=== PATIENT | female | born 1955 | race Hispanic/Latino ===

== ENCOUNTER 2017-10-25 05:27 | Emergency (ER) | payer MEDICARE ==
[~2017-10-25] VITALS: Ht 157.5 cm; Wt 71.7 kg
[~2017-10-25 05:27] MED LIST: Z.0.FOLIC ACID1 MG MT; Z.0.HUMIRA40 MG/0.1 SQ; Z.0.MELOXICAM15 MG MT; Z.1.METHOTREXATE2.5 MT
[2017-10-25 05:54] LABS: BASOPHILS # (AUTO) 0.1 (0.0-0.1); BASOPHILS % 0.7 % (0.0-1.0); EOSINOPHILS # (AUTO) 0.2 (0.0-0.4); EOSINOPHILS % 1.9 % (0.0-6.0); HEMATOCRIT 40.3 % (34.2-44.1); HEMOGLOBIN 13.7 g/dL (12.0-16.0); LYMPHOCYTES # (AUTO) 2.9 (1.0-3.2); LYMPHOCYTES % 29.8 % (18.0-39.1); MEAN CORPUSCULAR HEMOGLOBIN 31.4 pg (28-32); MEAN CORPUSCULAR VOLUME 92.2 fL (81-99); MONOCYTES # (AUTO) 0.9 (0.2-0.8); NEUTROPHILS # (AUTO) 5.7 (2.1-6.9); NEUTROPHILS % 58.1 % (38.7-80.0); PLATELET COUNT 334 x10e3/uL (140-360); RED BLOOD COUNT 4.37 x10e6/uL (3.6-5.1); RED CELL DISTRIBUTION WIDTH 14.3 % (11.7-14.4)
[2017-10-25 05:55] LABS: CLARITY,URINE CLEAR (CLEAR); COLOR,URINE YELLOW (YELLOW)
[2017-10-25 06:07] LABS: LEUKOCYTE ESTERASE ,URINE NEGATIVE (NEGATIVE); NITRITE,URINE NEGATIVE (NEGATIVE); PROTEIN,URINE DIPSTICK NEGATIVE (NEGATIVE)
[2017-10-25 06:08] LABS: BACTERIA,URINE RARE /HPF; BILIRUBIN,URINE NEGATIVE (NEGATIVE); EPITHELIAL CELLS,URINE RARE /LPF; KETONES,URINE NEGATIVE (NEGATIVE); RBC,URINE 0-5 /HPF (0-5); URINE UROBILINOGEN 0.2 mg/dL (0.2 - 1); WBC,URINE (MAN) 0-5 /HPF (0-5)
[2017-10-25 06:29] LABS: ALANINE AMINOTRANSFERASE 26 IU/L (0-55); ALBUMIN 4.1 g/dL (3.5-5.0); ALBUMIN/GLOBULIN RATIO 1.2 (0.8-2.0); ALKALINE PHOSPHATASE 116 IU/L (40-150); AMYLASE 75 U/L (25-125); ANION GAP 12.5 mmol/L (8-16); BLOOD UREA NITROGEN 10 mg/dL (7-26); BUN/CREATININE RATIO 14 (6-25); CALCIUM 9.7 mg/dL (8.4-10.2); CARBON DIOXIDE 27 mmol/L (22-29); CHLORIDE 103 mmol/L (98-107); CREATININE, SERUM 0.72 mg/dL (0.57-1.11); EST GLOMERULAR FILTRATION RATE > 60 ML/MIN (60-); GLUCOSE 89 mg/dL (74-118); LIPASE 8 U/L (8-78); POTASSIUM 3.5 mmol/L (3.5-5.1); SODIUM 139 mmol/L (136-145)
--- NOTE | 2017-10-25 06:33 | Diagnostic Imaging Report ---
EXAM: CT ABDOMEN/PELVIS WO DATE: 10/25/2017 5:48 AM INDICATION: Right flank pain COMPARISON: None TECHNIQUE: The abdomen and pelvis were scanned using a multidetector helical scanner. Coronal and sagittal reformations were obtained. Routine protocol performed. IV Contrast: 0 ml Isovue 370 FINDINGS: Lack of IV contrast decreases sensitivity in evaluating abdominal and pelvic organs. LOWER THORAX: Minimal scattered atelectasis/scarring. LIVER/BILIARY: No masses. No ductal dilatation. GALLBLADDER: Unremarkable SPLEEN: Unremarkable PANCREAS: Unremarkable ADRENALS: No nodules KIDNEYS: No stones. No hydronephrosis. GI TRACT: No wall thickening or evidence of obstruction. Normal appendix. VESSELS: Mild atherosclerotic calcification. PERITONEUM/RETROPERITONEUM: No free air or fluid LYMPH NODES: No lymphadenopathy REPRODUCTIVE ORGANS/BLADDER: Unremarkable SOFT TISSUES: Unremarkable BONES: Lower lumbar facet arthrosis. Grade 1 anterolisthesis of L4 over L5. IMPRESSION: No evidence of obstructive uropathy or other acute abnormality on noncontrast evaluation. Signed by: Dr Mirtha Mireles MD on 10/25/2017 6:29 AM
[2017-10-25] MEDS ORDERED: KETOROLAC TROMETHAMINE 30 MG/ML VIAL IV STA (06:49)
== END 2017-10-25 07:31 | disposition home or self-care (01) ==
LOC: ER 05:27
DX: R10.9 Unspecified abdominal pain (principal); R11.0 Nausea; S39.011A Strain of muscle, fascia and tendon of abdomen, initial encounter; M06.9 Rheumatoid arthritis, unspecified
CPT/HCPCS: 36415; 74176; 80053; 81001; 82150; 83690; 85025; 96374; 99284; J1885

== ENCOUNTER 2019-12-13 12:21 | Emergency (ER) | payer MEDICARE ==
[~2019-12-13] VITALS: Ht 157.5 cm; Wt 71.7 kg
--- OUTSIDE RECORDS SUMMARY | 2019-12-13 12:23 | XMS REPORT ---
Author Author [facility] t Organization [facility] Address [address] [facility]. [address] [place] [address] Phone Unavailable Care Team Providers Care Healthcare Educator Name Role Phone NATHALIE BHATT MD PCP Bronson KEENAN Attphys Unavailable Payers Payer Name Policy Type Policy Number Effective Date Expiration Date S ource Medicare A & B [id number] Joint venture between [facility] Problems This patient has no known problems. Allergies, Adverse Reactions, Alerts Allergy Name Allergy Type Status Severity Reaction(s) Onset Date Inacti ve Date Treating Clinician Comments Source Iodine Allergy to Substance Active Unknown 2017-10-25 00:00:00 [facility] Medications Ordered Medication Name Filled Medication Name Start Date Stop Da te Current Medication? Ordering Clinician Indication Dosage Frequency Signature (SIG) Comments Components Source Adalimumab (Humira) 40 Mg/0.8 Ml Pen.ij.kit Adalimumab (Humira) 40 Mg/0.8 Ml Pen.ij.kit Yes 1 Every 2 Weeks C [facility] Folic Acid 1 Mg Tablet Folic Acid 1 Mg Tablet Yes 5 Once/Week [facility] Meloxicam 15 Mg Tablet Meloxicam 15 Mg Tablet Yes 1 Daily [facility] Methotrexate Sodium (Methotrexate) 2.5 Mg Tablet Metho trexate Sodium (Methotrexate) 2.5 Mg Tablet Yes 5 Once/Week [facility] Procedures Procedure Date / Time Performed Performing Clinician [facility] robert CT of abdomen and pelvis without contrast 2017-10-25 00:00:0 0 RITO KEENAN [facility] Encounters Start Date/Time End Date/Time [facility]counter Type [facility] En[facility] ID Source 2017-10-25 05:27:00 2017-10-25 07:31:00 Departed Emergency Room ER RITO KEENAN [facility] [id number] [facility] Results Test Description Test Time Test Comments Results Result Comments Source Sodium Level 2017-10-25 06:40:00 Test Item Sodium Level (test code = 2951-2) 139 136-145 [facility] CampusPotassium [id number] 06:40:00* Test Item Value Reference Range Interpretation Comments Potassium Level (test code = 2823-3) 3.5 3.5-5.1 [facility] CampusChloride [id number] 06:40:00* Test Item Value Reference Range Interpretation Comments Chloride Level (test code = 2075-0) 103 98-107 [facility] CampusCarbon Dioxide Hqrgw5614-11-80 06:40:00* Test Item Value Reference Range Interpretation Comments Carbon Dioxide Level (test code = 2028-9) 27 22-29 [facility] CampusAnion [id number] 06:40:00* Test Item Value Reference Range Interpretation Comments Anion Gap (test code = 29597-6) 12.5 8-16 [facility] CampusBlood Urea [id number] 06:40:00* Test Item Value Reference Range Interpretation Comments Blood Urea Nitrogen (test code = 3094-0) 10 7-26 [facility] CampusCreatinine2018-03-31 06:40:00* Test Item Value Reference Range Interpretation Comments Creatinine (test code = 2160-0) 0.72 0.57-1.11 [facility] CampusBUN/Creatinine [id number] 06:40:00* Test Item Value Reference Range Interpretation Comments BUN/Creatinine Ratio (test code = 3097-3) 14 6-25 [facility] CampusEstimat Glomerular Filtration Rate 2017-10-25 06:40:00* Test Item Value Reference Range Interpretation Comments Estimat Glomerular Filtration Rate (test code = 32170-7) 60- >60 Ranges were taken from the National Kidney Disease Education Program and the [facility] literature.Reference ranges:60 or greater: Vrizby54-96 ( for 3 consecutive months): Chronic kidney disease 15 or less: Kidney failureNorth [facility] Hospital [facility] Falls CampusGlucose [id number] 06:40:00* Test Item Value Reference Range Interpretation Comments Glucose Level (test code = WFE5038) 89 74-118 [facility] CampusCalcium [id number] 06:40:00* Test Item Value Reference Range Interpretation Comments Calcium Level (test code = 38218-9) 9.7 8.4-10.2 [facility] CampusTotal Xzsdomgzm7531-05-21 06:40:00* Test Item Value Reference Range Interpretation Comments Total Bilirubin (test code = 1975-2) 0.6 0.2-1.2 [facility] CampusAspartate Amino Transf (AST/SGOT) 2017-10-25 06:40:00* Test Item Value Reference Range Interpretation Comments Aspartate Amino Transf (AST/SGOT) (test code = Aspartate Amino Transf (AST/SGOT)) 19 5-34 [facility] CampusAlanine Aminotransferase (ALT/SGPT) 2017-10-25 06:40:00* Test Item Value Reference Range Interpretation Comments Alanine Aminotransferase (ALT/SGPT) (test code = 1742-6) 26 0-55 [facility] CampusTotal Bcdttku0175-16-54 06:40:00* Test Item Value Reference Range Interpretation Comments Total Protein (test code = 2885-2) 7.6 6.5-8.1 [facility] CampusAlbumin2018-03-31 06:40:00* Test Item Value Reference Range Interpretation Comments Albumin (test code = 1751-7) 4.1 3.5-5.0 [facility] CampusGlobulin2018-03-31 06:40:00* Test Item Value Reference Range Interpretation Comments Globulin (test code = 99308-5) 3.5 2.3-3.5 [facility] CampusAlbumin/Globulin [id number] 06:40:00 * Test Item Value Reference Range Interpretation Comments Albumin/Globulin Ratio (test code = 1759-0) 1.2 0.8-2.0 [facility] CampusAlkaline Ncliryckwax4623-77-30 06:40:00* Test Item Value Reference Range Interpretation Comments Alkaline Phosphatase (test code = 6768-6) 116 40-150 [facility] CampusAmylase Fjejd7586-81-95 06:40:00* Test Item Value Reference Range Interpretation Comments Amylase Level (test code = 1798-8) 75 25-125 [facility] CampusLipase2018-03-31 06:40:00* Test Item Value Reference Range Interpretation Comments Lipase (test code = 3040-3) 8 8-78 [facility] CampusUrine Ueexb7441-57-62 06:08:00* Test Item Value Reference Range Interpretation Comments Urine Color (test code = 5778-6) YELLOW YELLOW [facility] CampusUrine Bwnuilk5248-89-46 06:08:00* Test Item Value Reference Range Interpretation Comments Urine Clarity (test code = 38911-7) CLEAR CLEAR [facility] CampusUrine Specific Nfxjhfz4432-84-41 06:08:00 * Test Item Value Reference Range Interpretation Comments Urine Specific Mitchell (test code = 5811-5) 1.010 1.010-1.02 5 [facility] CampusUrine [id number] 06:08:00* Test Item Value Reference Range Interpretation Comments Urine pH (test code = 59059-5) 7 5-7 [facility] CampusUrine Leukocyte Cikgnpfk7704-28-09 06:08:00* Test Item Value Reference Range Interpretation Comments Urine Leukocyte Esterase (test code = 5799-2) NEGATIVE NEGATIVE [facility] CampusUrine Sfmydwi9071-97-04 06:08:00* Test Item Value Reference Range Interpretation Comments Urine Nitrite (test code = 64977-1) NEGATIVE NEGATIVE [facility] CampusUrine Ozbxtsm5744-63-98 06:08:00* Test Item Value Reference Range Interpretation Comments Urine Protein (test code = 5804-0) NEGATIVE NEGATIVE [facility] CampusUrine Glucose (UA)2017-10-25 06:08:00* Test Item Value Reference Range Interpretation Comments Urine Glucose (UA) (test code = 2349-9) NEGATIVE NEGATIVE [facility] CampusUrine Hjrgdpg5596-21-38 06:08:00* Test Item Value Reference Range Interpretation Comments Urine Ketones (test code = 75633-9) NEGATIVE NEGATIVE [facility] Azmfltssrjmg8901-18-84 06:08:00* Test Item Value Reference Range Interpretation Comments Urine Urobilinogen (test code = 48972-9) 0.2 0.2-1 [facility] Nkblgcfcb2904-42-97 06:08:00* Test Item Value Reference Range Interpretation Comments Urine Bilirubin (test code = 1978-6) NEGATIVE NEGATIVE [facility] CampusUrine Ocyfk4178-97-64 06:08:00* Test Item Value Reference Range Interpretation Comments Urine Blood (test code = 49631-9) NEGATIVE NEGATIVE [facility] CampusUrine [id number] 06:08:00* Test Item Value Reference Range Interpretation Comments Urine WBC (test code = 5821-4) 0-5 0-5 [facility] CampusUrine [id number] 06:08:00* Test Item Value Reference Range Interpretation Comments Urine RBC (test code = 76640-0) 0-5 0-5 [facility] CampusUrine Jzdqvzlv1264-96-66 06:08:00* Test Item Value Reference Range Interpretation Comments Urine Bacteria (test code = 62912-9) RARE NONE [facility] CampusUrine Epithelial Rvthz3274-55-55 06:08:00 * Test Item Value Reference Range Interpretation Comments Urine Epithelial Cells (test code = 56832-7) RARE NONE [facility] CampusWhite Blood Msdjs6641-49-06 06:06:00* Test Item Value Reference Range Interpretation Comments White Blood Count (test code = 6690-2) 9.82 4.8-10.8 [facility] CampusRed Blood Fdgha1965-46-22 06:06:00* Test Item Value Reference Range Interpretation Comments Red Blood Count (test code = 789-8) 4.37 3.6-5.1 [facility] CampusHemoglobin2018-03-31 06:06:00* Test Item Value Reference Range Interpretation Comments Hemoglobin (test code = 52095-4) 13.7 12.0-16.0 [facility] CampusHematocrit2018-03-31 06:06:00* Test Item Value Reference Range Interpretation Comments Hematocrit (test code = 4544-3) 40.3 34.2-44.1 [facility] CampusMean Corpuscular Irscve3446-96-70 06:06:00* Test Item Value Reference Range Interpretation Comments Mean Corpuscular Volume (test code = 787-2) 92.2 81-99 [facility] CampusMean Corpuscular Oeqwpfkbqf8746-49-81 06:06:00* Test Item Value Reference Range Interpretation Comments Mean Corpuscular Hemoglobin (test code = 785-6) 31.4 28-32 [facility] Corpuscular Hemoglobin Concent 2017-10-25 06:06:00* Test Item Value Reference Range Interpretation Comments Mean Corpuscular Hemoglobin Concent (test code = 786-4) 34.0 31-35 [facility] CampusRed Cell Distribution Wgrbo7266-89-84 06:06:00* Test Item Value Reference Range Interpretation Comments Red Cell Distribution Width (test code = 88734-0) 14.3 11.7 -14.4 [facility] CampusPlatelet Bmwiu2379-65-87 06:06:00* Test Item Value Reference Range Interpretation Comments Platelet Count (test code = 777-3) 334 140-360 [facility] CampusNeutrophils (%) (Auto)2017-10-25 06:06:00 * Test Item Value Reference Range Interpretation Comments Neutrophils (%) (Auto) (test code = 62232-2) 58.1 38.7-80.0 [facility] CampusLymphocytes (%) (Auto)2017-10-25 06:06:00 * Test Item Value Reference Range Interpretation Comments Lymphocytes (%) (Auto) (test code = 736-9) 29.8 18.0-39.1 [facility] CampusMonocytes (%) (Auto)2017-10-25 06:06:00* Test Item Value Reference Range Interpretation Comments Monocytes (%) (Auto) (test code = 5905-5) 9.0 4.4-11.3 [facility] CampusEosinophils (%) (Auto)2017-10-25 06:06:00 * Test Item Value Reference Range Interpretation Comments Eosinophils (%) (Auto) (test code = 713-8) 1.9 0.0-6.0 [facility] CampusBasophils (%) (Auto)2017-10-25 06:06:00* Test Item Value Reference Range Interpretation Comments Basophils (%) (Auto) (test code = 706-2) 0.7 0.0-1.0 [facility] CampusIM GRANULOCYTES %2017-10-25 06:06:00* Test Item Value Reference Range Interpretation Comments IM GRANULOCYTES % (test code = IM GRANULOCYTES %) 0.5 0.0- 1.0 [facility] CampusNeutrophils # (Auto)2017-10-25 06:06:00* Test Item Value Reference Range Interpretation Comments Neutrophils # (Auto) (test code = 751-8) 5.7 2.1-6.9 [facility] CampusLymphocytes # (Auto)2017-10-25 06:06:00* Test Item Value Reference Range Interpretation Comments Lymphocytes # (Auto) (test code = 80902-7) 2.9 1.0-3.2 [facility] CampusMonocytes # (Auto)2017-10-25 06:06:00* Test Item Value Reference Range Interpretation Comments Monocytes # (Auto) (test code = 742-7) 0.9 0.2-0.8 [facility] CampusEosinophils # (Auto)2017-10-25 06:06:00* Test Item Value Reference Range Interpretation Comments Eosinophils # (Auto) (test code = 711-2) 0.2 0.0-0.4 [facility] CampusBasophils # (Auto)2017-10-25 06:06:00* Test Item Value Reference Range Interpretation Comments Basophils # (Auto) (test code = 704-7) 0.1 0.0-0.1 [facility] CampusAbsolute Immature Granulocyte (auto 2017-10-25 06:06:00* Test Item Value Reference Range Interpretation Comments Absolute Immature Granulocyte (auto (arianna t code = Absolute Immature Granulocyte (auto) 0.05 0-0.1 [facility] CampusCT ABDOMEN/PELVIS [place] [address] Patient Name: JUAN LUIS BENTON MR #: [id number] : 1955 Age/Sex: 62/F Req #: [id number] Adm Physician: Ordered by: RITO KEENAN MD Report #: [id number] Location: ER Room /Bed: Procedure: [id number] CT/CT ABDOMEN/PELVIS WO E xam Date: Exam Time: REPORT STATUS: Signed EXAM: CT ABDOMEN/PELVIS WO DATE: 10/25/2017 5:48 AM INDICATION: Right fla nk pain COMPARISON: None TECHNIQUE: The abdomen and pelvis were scanned us ing a multidetector helical scanner. Coronal and sagittal reformations were ob tained. Routine protocol performed. IV Contrast: 0 ml Isovue 370 FINDIN GS: Lack of IV contrast decreases sensitivity in evaluating abdominal and pelv ic organs. LOWER THORAX: Minimal scattered atelectasis/scarring. LIVER/ BILIARY: No masses. No ductal dilatation. GALLBLADDER: Unremarkable SPL EEN: Unremarkable PANCREAS: Unremarkable ADRENALS: No nodules KIDNEYS: No stones. No hydronephrosis. GI TRACT: No wall thickening or evidence of o bstruction. Normal appendix. VESSELS: Mild atherosclerotic calcification. PERITONEUM/RETROPERITONEUM: No free air or fluid LYMPH NODES: No lymphadenopa thy REPRODUCTIVE ORGANS/BLADDER: Unremarkable SOFT TISSUES: Unremarkab le BONES: Lower lumbar facet arthrosis. Grade 1 anterolisthesis of L4 over L5. IMPRESSION: No evidence of obstructive uropathy or other acute abnormali ty on noncontrast evaluation. Signed by: Dr Stewart Mireles MD on 8 6:29 AM Dictated By: STEWART MIRELES MD 8 Transcribed By: YARON on 10/25/17628 COPY TO: RITO KEENAN MD
[2019-12-13] MEDS ORDERED: SODIUM CHLORIDE 0.9% 1000ML 1,000 ML IV STA (12:29)
[2019-12-13] MEDS ORDERED: FAMOTIDINE 20 MG/2 ML VIAL IV STA (12:29)
[2019-12-13] MEDS ORDERED: LIDOCAINE VISC 2% SOLN 15 ML UDC PO ONE (12:30)
[2019-12-13 13:25] LABS: BASOPHILS # (AUTO) 0.1 (0.0-0.1); BASOPHILS % 0.9 % (0.0-1.0); EOSINOPHILS % 0.3 % (0.0-6.0); HEMATOCRIT 41.6 % (34.2-44.1); LYMPHOCYTES # (AUTO) 1.8 (1.0-3.2); LYMPHOCYTES % 24.6 % (18.0-39.1); MEAN CORPUSCULAR HEMOGLOBIN 31.3 pg (28-32); MEAN CORPUSCULAR HGB CONC 33.7 g/dL (31-35); MEAN CORPUSCULAR VOLUME 93.1 fL (81-99); MONOCYTES # (AUTO) 0.6 (0.2-0.8); MONOCYTES % 7.4 % (4.4-11.3); NEUTROPHILS # (AUTO) 4.9 (2.1-6.9); NEUTROPHILS % 66.5 % (38.7-80.0); PLATELET COUNT 291 x10e3/uL (140-360); RED BLOOD COUNT 4.47 x10e6/uL (3.6-5.1); RED CELL DISTRIBUTION WIDTH 14.1 % (11.7-14.4)
[2019-12-13 13:46] LABS: ALANINE AMINOTRANSFERASE 19 IU/L (0-55); ALBUMIN 4.7 g/dL (3.5-5.0); ALBUMIN/GLOBULIN RATIO 1.4 (0.8-2.0); ALKALINE PHOSPHATASE 99 IU/L (40-150); ANION GAP 14.8 mmol/L (8-16); BLOOD UREA NITROGEN 9 mg/dL (7-26); BUN/CREATININE RATIO 11 (6-25); CALCIUM 10.2 mg/dL (8.4-10.2); CARBON DIOXIDE 23 mmol/L (22-29); CHLORIDE 107 mmol/L (98-107); CREATINE KINASE 77 IU/L (29-168); CREATININE, SERUM 0.82 mg/dL (0.57-1.11); EST GLOMERULAR FILTRATION RATE > 60 ML/MIN (60-); GLUCOSE 116 mg/dL (74-118); POTASSIUM 3.8 mmol/L (3.5-5.1); SODIUM 141 mmol/L (136-145)
--- NOTE | 2019-12-13 14:25 | Emergency Department Note ---
History of Present Illnes History of Present Illness Chief Complaint: General Medicine Complaints History of Present Illness This is a 64 year old female brought by family member for evaluation of epigastric pain which radiates to her neck since this AM. reports having R neck fullness and has been having weakness and decreased appetite of two months duration . . Historian: Patient, Family Member Arrival Mode: Car History limited by: language barrier [employer] Chem[employer] Required: Yes Onset (how long ago): month(s) (2) Radiation: neck Severity: mild Onset quality: gradual Duration (how long): month(s) (2) Timing of current episode: constant Progression: unchanged Chronicity: new Context: recent illness Relieving factors: none Exacerbating factors: eating Associated symptoms: chest pain Treatments prior to arrival: none Past Medical/Family History Physician Review I have reviewed the patient's past medical and family history. Any updates have been documented here. Past Medical History Recent Fever: No Clinical Suspicion of Infectio: No New/Unexplained Change in Ment: No Past Medical History: GERD Other Medical History: RA UNDER TREATMENT Other Surgery: FOOT SURGERY Social History Smoking Cessation: Never Smoker Alcohol Use: None Any Illegal Drug Use: No Family History Family history of heart diseas: No Other Last Tetanus: UTD Review of Systems Review of Systems Constitutional: no symptoms EENTM: no symptoms Cardiovascular: chest pain Respiratory: dyspnea Gastrointestinal: no symptoms Genitourinary: no symptoms Musculoskeletal: no symptoms Neurological: no symptoms Psychological: no symptoms Endocrine: no symptoms Hematological/Lymphatic: no symptoms Review of other systems All other systems reviewed and negative. Physical Exam Related Data Allergies: Coded Allergies: iodine (Verified Allergy, Unknown, 10/25/17) Triage Vital Signs Vital Signs Date Time Temp Pulse Resp B/P (MAP) Pulse Ox O2 Delivery O2 Flow Rate FiO2 12/13/19 12:23 97.9 91 18 172/127 99 Vital signs reviewed: Yes Physical Exam CONSTITUTIONAL Constitutional: well-developed, well-nourished HENT HENT: normocephalic, atraumatic, oropharynx clear/moist, nose normal HENT L/R: left ext ear normal, right ext ear normal EYES Eyes: PERRL, conjunctivae normal NECK Neck: ROM normal PULMONARY Pulmonary: effort normal, breath sounds normal CARDIOVASCULAR Cardiovascular: regular rhythm, heart sounds normal, capillary refill normal, normal rate GASTROINTESTINAL Abdominal: soft, nontender, bowel sounds normal GENITOURINARY Genitourinary: exam deferred SKIN Skin: warm, dry MUSCULOSKELETAL Musculoskeletal: ROM normal NEUROLOGICAL Neurological: alert, oriented x 3, no gross motor or sensory deficits PSYCHOLOGICAL Psychological: mood/affect normal, judgement normal Results Laboratory Laboratory Laboratory Tests Test 12/13/19 13:09 White Blood Count 7.41 x10e3/uL (4.8-10.8) Red Blood Count 4.47 x10e6/uL (3.6-5.1) Hemoglobin 14.0 g/dL (12.0-16.0) Hematocrit 41.6 % (34.2-44.1) Mean Corpuscular Volume 93.1 fL (81-99) Mean Corpuscular Hemoglobin 31.3 pg (28-32) Mean Corpuscular Hemoglobin Concent 33.7 g/dL (31-35) Red Cell Distribution Width 14.1 % (11.7-14.4) Platelet Count 291 x10e3/uL (140-360) Neutrophils (%) (Auto) 66.5 % (38.7-80.0) Lymphocytes (%) (Auto) 24.6 % (18.0-39.1) Monocytes (%) (Auto) 7.4 % (4.4-11.3) Eosinophils (%) (Auto) 0.3 % (0.0-6.0) Basophils (%) (Auto) 0.9 % (0.0-1.0) Neutrophils # (Auto) 4.9 (2.1-6.9) Lymphocytes # (Auto) 1.8 (1.0-3.2) Monocytes # (Auto) 0.6 (0.2-0.8) Eosinophils # (Auto) 0.0 (0.0-0.4) Basophils # (Auto) 0.1 (0.0-0.1) Absolute Immature Granulocyte (auto 0.02 x10e3/uL (0-0.1) Sodium Level 141 mmol/L (136-145) Potassium Level 3.8 mmol/L (3.5-5.1) Chloride Level 107 mmol/L (98-107) Carbon Dioxide Level 23 mmol/L (22-29) Anion Gap 14.8 mmol/L (8-16) Blood Urea Nitrogen 9 mg/dL (7-26) Creatinine 0.82 mg/dL (0.57-1.11) Estimat Glomerular Filtration Rate > 60 ML/MIN (60-) BUN/Creatinine Ratio 11 (6-25) Glucose Level 116 mg/dL (74-118) Calcium Level 10.2 mg/dL (8.4-10.2) Total Bilirubin 0.5 mg/dL (0.2-1.2) Aspartate Amino Transf (AST/SGOT) 23 IU/L (5-34) Alanine Aminotransferase (ALT/SGPT) 19 IU/L (0-55) Alkaline Phosphatase 99 IU/L (40-150) Creatine Kinase 77 IU/L (29-168) Creatine Kinase MB 1.10 ng/mL (0-5.0) Troponin I < 0.001 ng/mL (0-0.300) B-Type Natriuretic Peptide 38.4 pg/mL (0-100) Total Protein 8.0 g/dL (6.5-8.1) Albumin 4.7 g/dL (3.5-5.0) Globulin 3.3 g/dL (2.3-3.5) Albumin/Globulin Ratio 1.4 (0.8-2.0) Lab results reviewed: Yes Imaging Imaging results reviewed: Yes Impressions [place] [address] Patient Name: JUAN LUIS BENTON MR #: [id number] : 1955 Age/Sex: 64/F Req #: [id number] Adm Physician: Ordered by: DERICK MERCER DO Report #: [id number] Location: ER Room/Bed: Procedure: [id number] DX/CHEST 2 VIEWS Exam Date: 12/13/19 Exam Time: 1510 REPORT STATUS: Signed Chest, 2 views, 12/13/2019. History: Weakness. Comparison: None available. Findings: The cardiomediastinal silhouette and pulmonary vasculature are within normal limits. The lungs are clear without evidence of consolidation or pleural effusion. Mild degenerative changes are present within the thoracic spine. There are no acute osseous or soft tissue abnormalities. Impression: No acute cardiopulmonary abnormality. Signed by: Derick Arredondo on 12/13/2019 3:41 PM Dictated By: DERICK ARREDONDO MD 40 Transcribed By: YARON on 12/13/191540 COPY TO: DERICK MERCER DO~ Procedures 12 Lead ECG Interpretation [employer] Chemist: Interpreted by ED physician Date: December 13, 2019 Prior [employer] tracings: reviewed Rhythm: sinus rhythm Rate: normal BPM: 100 QRS axis: normal ST segments normal: Yes T waves normal: Yes Clinical Impression: normal ECG Assessment & Plan Assessment & Plan Problems: (1) Epigastric pain (2) Dysphagia Assessment & Plan labs and imaging results discussed with Patient and son at bedside. referral to GI specialist for endoscopy upper for dysphagia. Patient's son will make appt through [facility] Disposition: HOME, SELF-CARE Last Vital Signs Date Time Temp Pulse Resp B/P (MAP) Pulse Ox O2 Delivery O2 Flow Rate FiO2 12/13/19 12:23 97.9 91 18 172/127 99 Home Meds Reported Medications Meloxicam (Meloxicam) 15 Mg Tablet, 1 MT DAILY 01/18/11 Folic Acid (Folic Acid) 1 Mg Tablet, 5 MT ONCE/WEEK 01/18/11 Methotrexate Sodium (Methotrexate) 2.5 Mg Tablet, 5 MT ONCE/WEEK 01/18/11 Adalimumab (Humira) 40 Mg/0.8 Ml Pen.ij.kit, 1 SQ EVERY 2 WEEKS 01/18/11 Medications in the ED Sodium Chloride 1,000 ml @ 0 mls/hr Q0M STAT IV Last administered on 12/13/19at 13:57; Admin Dose 1,000 MLS/HR; Start 12/13/19 at 12:29; Stop 12/13/19 at 16:31; Status DC Famotidine 20 mg NOW STAT IV Last administered on 12/13/19at 13:57; Admin Dose 20 MG; Start 12/13/19 at 12:29; Stop 12/13/19 at 16:31; Status DC Lidocaine HCl 10 ml ONCE ONCE PO Last administered on 12/13/19at 13:57; Admin Dose 10 ML; Start 12/13/19 at 12:30; Stop 12/13/19 at 16:31; Status DC DERICK MERCER DO December 13, 2019 12:33
--- NOTE | 2019-12-13 15:45 | Diagnostic Imaging Report ---
Chest, 2 views, 12/13/2019. History: Weakness. Comparison: None available. Findings: The cardiomediastinal silhouette and pulmonary vasculature are within normal limits. The lungs are clear without evidence of consolidation or pleural effusion. Mild degenerative changes are present within the thoracic spine. There are no acute osseous or soft tissue abnormalities. Impression: No acute cardiopulmonary abnormality. Signed by: Derick Arredondo on 12/13/2019 3:41 PM
== END 2019-12-13 16:30 | disposition home or self-care (01) ==
LOC: ER 12:21
DX: R10.13 Epigastric pain (principal); K21.9 Gastro-esophageal reflux disease without esophagitis; M06.9 Rheumatoid arthritis, unspecified
CPT/HCPCS: 36415; 71046; 80053; 82550; 82553; 83880; 84484; 85025; 93005; 99284; J7030